=== PATIENT | male | born 1930 | race Caucasian/White ===

== ENCOUNTER 2017-02-09 17:38 | Emergency (ER) | payer MEDICARE, BC ==
[2017-02-09 17:46] VITALS: BP 146/80
[2017-02-09] MEDS ORDERED: DOXYcycline CAP(*) 100 MG PO ONE (19:14)
--- NOTE | 2017-02-19 08:21 | UC ---
Skin Complaint HPI - HPI Summary HPI Summary: has three small remaining ticks on his right arm that he is an able to remove - his was able to remove one prior to arrival. Believes he was exposed in the past 2-3 days- - History of Current Complaint Chief Complaint: UCScassiezunguyen Time Seen by Provider: 02/09/17 18:56 Stated Complaint: TICK BITE Hx Obtained From: Patient Onset/Duration: Sudden Onset Skin Exposure Onset/Duration: Days Ago Timing: Constant Onset Severity: Mild Current Severity: None Pain Intensity: 0 Pain Scale Used: PAINAD Location: Diffuse - right fore arm Aggravating: Nothing Alleviating: Nothing Associated Signs & Symptoms: Positive: Negative Related History: Insect Bite/Sting - Allergy/Home Medications Allergies/Adverse Reactions: Allergies Allergy/AdvReac Type Severity Reaction Status Date / Time No Known Allergies Allergy Verified 02/09/17 17:46 Review of Systems Constitutional: Negative Skin: Other - 3 small ticks on right arm patient needs assistance removing Eyes: Negative ENT: Negative Respiratory: Negative Cardiovascular: Negative Gastrointestinal: Negative Genitourinary: Negative Motor: Negative Neurovascular: Negative Musculoskeletal: Negative Neurological: Negative Psychological: Negative All Other Systems Reviewed And Are Negative: Yes PMH/Surg Hx/FS Hx/Imm Hx Previously Healthy: No Endocrine History: Dyslipidemia Cardiovascular History: Hypertension, Atrial Fibrillation - Surgical History Surgical History: Yes Surgery Procedure, Year, and Place: Pacemaker - Family History Known Family History: Positive: None - Social History Occupation: Retired Lives: With Family Alcohol Use: Rare Substance Use Type: None Smoking Status (MU): Never Smoked Tobacco - Immunization History Most Recent Influenza Vaccination: season Most Recent Tetanus Shot: 6 months ago Physical Exam Triage Information Reviewed: Yes Appearance: Well-Appearing, No Pain Distress, Well-Nourished Vital Signs: Initial Vital Signs Temp 97.7 F 02/09/17 17:41 Pulse 80 02/09/17 17:41 Resp 18 02/09/17 17:41 BP 146/80 02/09/17 17:41 Pulse Ox 100 02/09/17 17:41 Vital Signs Reviewed: Yes Eye Exam: Normal Eyes: Positive: Conjunctiva Clear ENT Exam: Normal ENT: Positive: Normal ENT inspection, Hearing grossly normal. Negative: Nasal congestion, Nasal drainage, Trismus, Muffled/hoarse voice Dental Exam: Normal Neck exam: Normal Neck: Positive: Supple, Nontender, No Lymphadenopathy Respiratory Exam: Normal Respiratory: Positive: Chest non-tender, No respiratory distress, No accessory muscle use Cardiovascular Exam: Normal Cardiovascular: Positive: RRR, Pulses Normal, Brisk Capillary Refill Musculoskeletal Exam: Normal Musculoskeletal: Positive: Strength Intact, ROM Intact, No Edema Neurological Exam: Normal Neurological: Positive: Alert, Muscle Tone Normal Psychological Exam: Normal Psychological: Positive: Normal Response To Family Skin: Positive: Other - Ticks as described Course/Dx - Course Course Of Treatment: Doxycycline 200 mg time one now, observe for s/s of Lyme disease follow with pcp - Differential Diagnoses - Skin Complaint Differential Diagnoses: Cellulitis, Heat Exhaustion, Local Allergic Reaction, Tick Born Illness - Diagnoses Provider Diagnoses: Tick expose with Lyme PEP, Hypertension in poor control Discharge - Discharge Plan Condition: Stable Disposition: HOME Patient Education Materials: Doxycycline (By mouth), Tick Bite (ED) Referrals: Arik Tierney MD [Primary Care Provider] - If Needed
== END 2017-02-09 19:30 | disposition home or self-care (01) ==
LOC: UCEAST 17:38
DX: S50.861A Insect bite (nonvenomous) of right forearm, initial encounter (principal); W57.XXXA Bitten or stung by nonvenomous insect and other nonvenomous arthropods, initial encounter; Y93.9 Activity, unspecified; Y92.9 Unspecified place or not applicable; I10 Essential (primary) hypertension; E78.5 Hyperlipidemia, unspecified; I48.91 Unspecified atrial fibrillation; Z95.0 Presence of cardiac pacemaker
CPT/HCPCS: 99212; A9270-GY; G0463

== ENCOUNTER 2018-06-01 09:00 | Inpatient (IN) | payer MEDICARE, BC ==
[2018-06-01 15:34] LABS: ABS Basophils 0 10^3/ul (0-0.2); ABS Eosinophils 0 10^3/ul (0-0.6); ABS Lymphocytes 0.8 10^3/ul (1.0-4.8); ABS Neutrophils 5.5 10^3/ul (1.5-7.7); ABS Nucleated RBC 0 10^3/ul; Eosinophil % 0.1 %; Hematocrit 43 % (42-52); Hemoglobin 14.5 g/dl (14.0-18.0); Lymphocyte % 10.4 %; Mean Corpuscular HGB Conc 33 g/dl (31-36); Mean Corpuscular Hemoglobin 30 pg (27-31); Mean Corpuscular Volume 90 fL (80-94); Mean Platelet Volume 9.2 fL (7.4-10.4); Nucleated Red Blood Cells % 0.1; Platelet Count 176 10^3/ul (150-450); Red Blood Count 4.81 10^6/ul (4.00-5.40); Red Cell Distribution Width 14 % (10.5-15); White Blood Count 7.3 10^3/ul (3.5-10.8)
[2018-06-01 15:53] LABS: EGFR Non-African American 57.8 (>60)
[2018-06-01] MEDS: cefTRIAXone(*) 2 GM in NS 0.9% 100 ML* 100 ML IVPB SCH (16:18)
[2018-06-01] MEDS ORDERED: Levalbuterol 0.63MG/3ML NEB* UNIT OF USE INH PRN (16:57)
[2018-06-01] MEDS: Azithromycin IV(*) 500 MG in NS 0.9% 250 ML* 250 ML IVPB SCH (17:27)
--- NOTE | 2018-06-01 18:55 | HP ---
ADMITTING HISTORY AND PHYSICAL: DATE OF ADMISSION: 06/01/18 Direct admission from medical office. PRESENTING COMPLAINT: Cough, fever, tachycardia, likely pneumonia or pneumonitis with possible sepsis. HISTORY OF PRESENT ILLNESS: Juma Johnston is an 88-year-old white male. He and his returned from a [place] cruise from [place] to [facility] on ; two days later he developed a cough which was productive, yellow-green thick sputum. The cough has worsened and he developed a fever 2 days ago. He has not noticed particular shortness of breath, but his has noticed that he has been struggling for breath. He has had a hoarse voice. He is coughing as he speaks. He has 2-pillow orthopnea. He has had no hemoptysis. He has had some sweats and tremors. He denies any chest pain. PREVIOUS MEDICAL HISTORY: He has a history of coronary artery disease with non- ST wave myocardial infarction and cardiac catheterization. On 10/31/11, he had critical stenosis of left circumflex, 20% stenosis of left anterior descending, 50% stenosis of proximal right coronary artery, and 70% to 75% stenosis of the proximal diagonal of the LAD. On 02/17/13, he had a subsequent coronary artery studies, on this occasion he had a totally occluded distal LAD, 60% mid LAD lesion of the second diagonal branch. Second diagonal branch with critical 80% ostial lesion, and 90% to 95% proximal circumflex narrowing, and 85% blockage in the first obtuse marginal branch and a 40% lesion in the proximal right coronary artery. He was transferred to [facility] where he had a pacemaker defibrillator inserted for ischemic cardiomyopathy. He subsequently had management for atrial fibrillation with anticoagulation and amiodarone. He has ongoing ischemic cardiomyopathy. An echocardiogram on 06/29/17, mild concentric left ventricular hypertrophy, [id number] decreased left ventricular systolic function with an ejection fraction of 40% to 45%, mildly dilated LA, trace MR, trace AR. He was last seen in cardiology office on when he was doing well. No changes were made to his medication. OTHER COMORBIDITIES: Hypercholesterolemia, hearing loss, polymyalgia rheumatica ; hypertension, which is usually office based, and iron deficiency anemia PAST SURGICAL HISTORY: He had a partial orchiectomy. CURRENT MEDICATIONS: 1. Aspirin 81 mg a day. 2. Atorvastatin 40 mg a day. 3. Vitamin B Complex 1 tablet a day. 4. Losartan 50 mg a day. 5. Pradaxa 150 mg daily. 6. Metoprolol ER 25 mg daily. ALLERGIES: LISINOPRIL causes cough. FAMILY HISTORY: Noncontributory. SOCIAL HISTORY: Life-long nonsmoker, occasional alcohol. He is a vegan. REVIEW OF SYSTEMS: General: He has fevers and sweats. He is feeling weak, and unwell. His appetite is decreased. Respiratory System: He has productive cough with sputum, which is discolored and no hemoptysis. He is short of breath. No chest pain on breathing. Cardiovascular System: Orthopnea. No paroxysmal nocturnal dyspnea. No ankle swelling. No chest pain or palpitations. Gastrointestinal System: Reduced appetite. No nausea, vomiting, abdominal pain or change in bowel habits. Genitourinary System: No dysuria or frequency. Nervous System: No headache or neck stiffness. No change in his vision. No problems focally with neurological issues. He is weak when he is walking. No skin changes. No musculoskeletal changes. PHYSICAL EXAMINATION GENERAL: He looks acutely unwell. He is centrally and peripherally cyanosed. He has got cold hands and feet. VITAL SIGNS: Temperature 101.3, pulse 126 and irregular, blood pressure 128/ 70. He is 144 pounds, 5 feet 8 inches tall, 21.9 BMI. Oxygen saturation 91%. RESPIRATORY SYSTEM: He has tachypnea, using accessory muscles of respirations. Percussion note was resonant. Breath sounds, he has wide spread coarse crackles and wheezes in both bases. CARDIOVASCULAR SYSTEM: His pulse was irregularly regular, heart sounds was normal, no added sounds or murmurs. No pedal edema. ABDOMEN: No distention. No masses, tenderness, or organomegaly. Bowel sounds are present. NERVOUS SYSTEM: He is alert and oriented. Conjugate eye movements. PERRLA. Fundi were normal. Cranial nerves II through XII intact. Arms and legs, full power, normal tone, and coordination. SKIN: Normal. ASSESSMENT AND PLAN: 1. Pneumonia. The most likely cause of his problems is a bronchopneumonia. Other possibilities include pneumonitis perhaps caused influenza or other virus. He may be developing sepsis. He certainly has tachycardia and high fever. He needs to be admitted to the hospital owing to the likelihood of pneumonia and comorbidities. At the hospital, he will have sputum checked for Gram stain and culture and sensitivity. He will have blood cultures. We will check a chest x-ray. Other labs will include CBC, differential, CRP, CMP, troponin I. We will treat him with IV fluid. 2. Rapid atrial fibrillation. This is driven by his fever and likely from hypovolemia. We will correct both of these. We will also decide whether we should give him some parenteral beta-blockers. 3. Coronary artery disease. We will rule out an acute ischemic episode and more likely, he has some demand ischemia. 4. Hearing loss. This remains a problem. 5. Cardiac pacemaker. He is tachycardic at the moment and this is not relevant. 6. Polymyalgia rheumatica. This is in remission. I discussed the above with the patient and his , Bonny Johnston. He agrees to a period of observation in the hospital to rule out pneumonia and to initiate treatment. [id number]/CPS #: [id number] MTDD
[2018-06-01] MEDS: Atorvastatin* 40 MG TAB PO SCH (20:02)
[2018-06-01] MEDS: CMCS: Dabigatran CAP(NF) 150 MG CAP PO SCH (20:04)
[2018-06-01] MEDS: GuaiFENesin DM* 5 ML UDC PO PRN (20:58)
[2018-06-01] MEDS: Metoprolol Succinate XL TAB* 25 MG PO SCH (23:14)
[2018-06-02] MEDS: GuaiFENesin DM* 5 ML UDC PO PRN ×3 (01:07→20:55)
--- NOTE | 2018-06-02 08:19 | PN ---
Subjective - Subjective Reason for Note: Progress Note History: He is more comfortable this morning and less dyspneic. He has no chest pain or palpitations and his heart rate has come down. He continues to have paroxysmal coughing and is bringing up sputum. He is afebrile and has had no chills/ sweats. 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.810 Patient is full code (Chronic 02/14/15) Z78.9 Polymyalgia rheumatica (Chronic) M35.3 Tremor (Chronic) R25.1 Current Medications: Current Medications Atorvastatin Calcium (Lipitor*) 40 mg PO 2100 [facility] Last Admin: 06/01/18 20:02 Dose: 40 mg Dabigatran (Pradaxa Cap(Nf)) 150 mg PO BID [facility] Last Admin: 06/01/18 20:04 Dose: 150 mg Guaifenesin/Dextromethorphan (Robitussin Dm*) 5 ml PO Q4H PRN PRN Reason: COUGH Last Admin: 06/02/18 01:07 Dose: 5 ml Azithromycin 500 mg/ Sodium (Chloride) 250 mls @ 250 mls/hr IVPB Q24H [facility] Last Admin: 06/01/18 17:27 Dose: 250 mls/hr Ceftriaxone Sodium 2 gm/ (Sodium Chloride) 100 mls @ 200 mls/hr IVPB Q24H [facility] Last Admin: 06/01/18 16:18 Dose: 200 mls/hr Lactated Ringer's (Lactated Ringers 1000 Ml Bag*) 1,000 mls @ 150 mls/hr IV PER RATE [facility] Stop: 06/02/18 15:04 Last Admin: 06/02/18 00:20 Dose: 150 mls/hr Levalbuterol HCl (Xopenex 0.63mg/3ml Neb*) 0.31 mg INH Q6H PRN PRN Reason: SOB/WHEEZING Last Admin: 06/01/18 17:45 Dose: 0.31 mg Metoprolol Succinate (Toprol Xl Tab*) 25 mg PO BEDTIME [place] Last Admin: 06/01/18 23:14 Dose: 25 mg Home Medications: Home Medications Medication Instructions Recorded Confirmed Type Atorvastatin* [Lipitor*] 1 tab PO BEDTIME 02/17/13 06/01/18 History Losartan TAB* [Cozaar TAB*] 2 tab PO DAILY 02/17/13 06/01/18 History Aspirin EC TAB* [Ecotrin EC Low 1 tab PO QAM 08/02/14 06/01/18 History Dose*] Dabigatran CAP(NF) [Pradaxa 1 cap PO BID 02/13/15 06/01/18 History CAP(NF)] Metoprolol Tartrate 1 tab PO QPM 02/25/15 06/01/18 History Allergies: Allergies Allergy/AdvReac Type Severity Reaction Status Date / Time No Known Allergies Allergy Verified 02/09/17 17:46 Objective - Vital Signs Vital Signs: Vital Signs 06/01/18 06/01/18 06/01/18 15:27 16:00 17:47 Temperature 98.4 F Pulse Rate 109 102 Respiratory 22 20 Rate Blood Pressure 142/66 (mmHg) O2 Sat by Pulse 95 95 95 Oximetry 06/01/18 06/02/18 06/02/18 19:40 00:05 00:33 Temperature 99.2 F 99.7 F Pulse Rate 114 106 Respiratory 24 24 Rate Blood Pressure 122/63 143/54 (mmHg) O2 Sat by Pulse 96 96 97 Oximetry 06/02/18 05:04 Temperature 98.3 F Pulse Rate 104 Respiratory 20 Rate Blood Pressure 138/73 (mmHg) O2 Sat by Pulse 97 Oximetry - Intake and Output Intake and Output: Intake & Output 05/30/18 05/31/18 06/01/18 06/02/18 11:59 11:59 11:59 11:59 Intake Total 440 Output Total 300 Balance 140 Weight 144 lb 4.8 oz Intake: IV Fluids 320 Oral 120 Output: Urine 300 Other: Estimated Void Small # Voids 1 ADLs: Meal Record Start: 06/01/18 15: 27 Freq: DAILY@0900,1400,1800 Status: Active Protocol: Created 06/01/18 15:27 System (Rec: 06/01/18 15:27 System [email or web address]) Document 06/01/18 18:00 [id number] (Rec: 06/01/18 21:03 [id number]) Intake and Output Start: 06/01/18 15: 27 Freq: DAILY@0600,1400,2200 Status: Active Protocol: Created 06/01/18 15:27 System (Rec: 06/01/18 15:27 System [email or web address]) Document 06/01/18 22:00 [id number] (Rec: 06/01/18 22:29 [id number] [email or web address]) Document 06/02/18 06:00 [id number] (Rec: 06/02/18 06:34 [id number]) - Physical Exam General Physical Exam Comment: He is warm and well perfused. He is no longer cyanosed. He is not in acute distress General: No Cyanosis, No Anemia, No Jaundice, No Clubbing Lungs and Chest: Yes: Chest Expansion Symetrica, Crackles - bibasilar, Wheezes. No: Chest Expansion Full, Percussion Note Resonant - dull right base, Vessicular Breath Sounds - diminished at bases with bilateral rhonchi, Respiratory Distress, Use of Accessory Muscles Heart Rate and Rhythm: Irregular Additional Cardiovascular: Yes: Normal Heart Sounds. No: Heart Murmur, Pedal Edema Abdominal Exam: Yes: Soft, Bowel Sounds Present. No: Distention, Abdominal Tenderness - Extremities Cranial Nerves II-XII Intact: Yes Limbs: Normal Power, Normal Tone - Neuro Orientation: A/O x3 Results - Results Lab Results: Laboratory Results - last 24 hr 06/01/18 06/01/18 06/01/18 15:25 15:25 17:55 WBC 7.3 RBC 4.81 Hgb 14.5 Hct 43 MCV 90 MCH 30 MCHC 33 RDW 14 Plt Count 176 MPV 9.2 Neut % (Auto) 75.1 Lymph % (Auto) 10.4 [place] % (Auto) 13.9 Eos % (Auto) 0.1 Baso % (Auto) 0.5 Absolute Neuts (auto) 5.5 Absolute Lymphs (auto) 0.8 L Absolute Monos (auto) 1.0 H Absolute Eos (auto) 0 Absolute Basos (auto) 0 Absolute Nucleated RBC 0 Nucleated RBC % 0.1 Sodium 134 L Potassium 3.8 Chloride 98 L Carbon Dioxide 29 Anion Gap 7 BUN 35 H Creatinine 1.19 H Est GFR ( Amer) 70.0 Est GFR (Non-Af Amer) 57.8 BUN/Creatinine Ratio 29.4 H Glucose 146 H Calcium 9.4 Total Bilirubin 1.40 H AST 53 H ALT 28 Alkaline Phosphatase 55 C-Reactive Protein 291.82 H Total Protein 7.5 Albumin 3.8 Globulin 3.7 Albumin/Globulin Ratio 1.0 Influenza A (Rapid) Negative Influenza B (Rapid) Negative Radiology Results: Patient Name: ADELE RODRIGUEZ Medical Record#: [id number] Ordering Physician: Arik Tierney MD Acct.#: [id number] : 1930 Age: 88 Sex: M Location: [address] [place] [address]/[employer]LE[employer] Exam Date: 06/01/181458 ADM Status: ADM Pearl Order Information: CHEST PA & LAT 2 VWS Accession Number: [id number] CPT: 98273 INDICATION: Pneumonia. COMPARISON: Comparison is made with prior chest x-ray study from February 15, 2015. TECHNIQUE: Dual-energy PA and lateral views of the chest were obtained. FINDINGS: The heart is upper limits of normal in size. There is a dual-chamber transvenous cardiac pacemaker defibrillator present. There is a small infiltrate in the right lower lobe. The left lung appears clear. No pleural effusion is seen. IMPRESSION: SMALL RIGHT LOWER LOBE INFILTRATE. <Electronically signed by Arun Gomez MD in OV> 06/01/181623 Dictated By: Arun Gomez MD Dictated Date/Time: 06/01/181623 Transcribed Date/Time: 06/01/181622 Copy to: CC:Arik Tierney MD; Kyrie Tinsley DO Imaging - [facility] Imaging - [facility] [address] [address] ph ([phone]) ph ([phone]) ph ([phone]) This report is only to be considered final once signed by the Provider(s) as displayed in the "<Electronically Signed by >" field (s). Absence of a signature indicates the report is in a draft status and still needs to be finalized. In the event this document was created by someone other than the signing Provider, the individual initiating the document will be listed in the "Entered by:" or "Dictated by:" morejon. 1 of 1 EKG Report: 06/01/2018 Rate 120 QTc 444 QRS axis -64 Atrial fibrillation: LAFB Assessment - Problem List Assessment: Patient Problems History of atrial fibrillation (Acute) Right lower lobe pneumonia (Acute) Cardiac pacemaker (Chronic) Chronic anticoagulation (Chronic) Coronary artery disease (Chronic) History of myocardial infarction (Chronic) Hypercholesteremia (Chronic) ICD (implantable cardioverter-defibrillator) in place (Chronic) Patient is full code (Chronic 02/14/15) Polymyalgia rheumatica (Chronic) Tremor (Chronic) Plan: Right lower lobe pneumonia (Acute) He has either pneumonitis or pneumonia. The paradox is the high CRP and fever at presentation, but the normal WBC and neut%. He is negative for influenza. He has responded well to rehydration, oxygen therapy and IV antibacterials. He is no longer cyanosed and peripherally shut down as he was in the office. I think he requires further IV antibacterials. This is a community acquired pneumonia. I will continue empiric therapy with ceftriaxone/azithromycin. I will add prednisone. He will have RT/. History of atrial fibrillation (Acute) His rate has come down Cardiac pacemaker (Chronic) ICD (implantable cardioverter-defibrillator) in place (Chronic) ongoing Chronic anticoagulation (Chronic) continue current Rx Coronary artery disease (Chronic) stable History of myocardial infarction (Chronic) Hypercholesteremia (Chronic) continue current Rx Patient is full code (Chronic 02/14/15) Polymyalgia rheumatica (Chronic) Tremor (Chronic) He is more alert and conversational today. He agrees with the management plan.
[2018-06-02] MEDS: CMCS: Dabigatran CAP(NF) 150 MG CAP PO SCH ×2 (08:49→20:35)
[2018-06-02] MEDS: predniSONE TAB* 20 MG PO SCH (10:40)
[2018-06-02] MEDS: cefTRIAXone(*) 2 GM in NS 0.9% 100 ML* 100 ML IVPB SCH (16:19)
[2018-06-02] MEDS: Azithromycin IV(*) 500 MG in NS 0.9% 250 ML* 250 ML IVPB SCH (17:27)
[2018-06-02] MEDS: Atorvastatin* 40 MG TAB PO SCH (20:35)
[2018-06-02] MEDS: Metoprolol Succinate XL TAB* 25 MG PO SCH (20:43)
[2018-06-03 06:42] LABS: ABS Basophils 0 10^3/ul (0-0.2); ABS Eosinophils 0 10^3/ul (0-0.6); ABS Lymphocytes 1.1 10^3/ul (1.0-4.8); ABS Monocytes 0.9 10^3/ul (0-0.8); ABS Neutrophils 7.6 10^3/ul (1.5-7.7); ABS Nucleated RBC 0 10^3/ul; Eosinophil % 0.3 %; Hematocrit 37 % (42-52); Hemoglobin 12.4 g/dl (14.0-18.0); Lymphocyte % 11.6 %; Mean Corpuscular HGB Conc 34 g/dl (31-36); Mean Corpuscular Hemoglobin 30 pg (27-31); Mean Corpuscular Volume 90 fL (80-94); Mean Platelet Volume 9.1 fL (7.4-10.4); Nucleated Red Blood Cells % 0; Platelet Count 157 10^3/ul (150-450); Red Blood Count 4.12 10^6/ul (4.00-5.40); Red Cell Distribution Width 14 % (10.5-15); White Blood Count 9.7 10^3/ul (3.5-10.8)
[2018-06-03] MEDS: predniSONE TAB* 20 MG PO SCH (08:59)
[2018-06-03] MEDS: CMCS: Dabigatran CAP(NF) 150 MG CAP PO SCH ×2 (09:00→21:24)
[2018-06-03] MEDS: GuaiFENesin DM* 5 ML UDC PO PRN (09:01)
--- NOTE | 2018-06-03 10:51 | PN ---
Subjective - Subjective Reason for Note: Progress Note History: He is improving. He continues to have paroxysmal coughing. His hoarse voice is improving. He has no chest pain or dyspnea at rest. He is not febrile and his pulse rate is not elevated. 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.810 Patient is full code (Chronic 02/14/15) Z78.9 Polymyalgia rheumatica (Chronic) M35.3 Tremor (Chronic) R25.1 Current Medications: Current Medications Atorvastatin Calcium (Lipitor*) 40 mg PO 2100 [facility] Last Admin: 06/02/18 20:35 Dose: 40 mg Dabigatran (Pradaxa Cap(Nf)) 150 mg PO BID [facility] Last Admin: 06/03/18 09:00 Dose: 150 mg Guaifenesin/Dextromethorphan (Robitussin Dm*) 5 ml PO Q4H PRN PRN Reason: COUGH Last Admin: 06/03/18 09:01 Dose: 5 ml Azithromycin 500 mg/ Sodium (Chloride) 250 mls @ 250 mls/hr IVPB Q24H [facility] Last Admin: 06/02/18 17:27 Dose: 250 mls/hr Ceftriaxone Sodium 2 gm/ (Sodium Chloride) 100 mls @ 200 mls/hr IVPB Q24H [facility] Last Admin: 06/02/18 16:19 Dose: 200 mls/hr Levalbuterol HCl (Xopenex 0.63mg/3ml Neb*) 0.31 mg INH Q6H PRN PRN Reason: SOB/WHEEZING Last Admin: 06/01/18 17:45 Dose: 0.31 mg Metoprolol Succinate (Toprol Xl Tab*) 25 mg PO BEDTIME [facility] Last Admin: 06/02/18 20:43 Dose: 25 mg Prednisone (Deltasone Tab*) 20 mg PO DAILY [facility] Last Admin: 06/03/18 08:59 Dose: 20 mg Home Medications: Home Medications Medication Instructions Recorded Confirmed Type Atorvastatin* [Lipitor*] 1 tab PO BEDTIME 02/17/13 06/01/18 History Losartan TAB* [Cozaar TAB*] 2 tab PO DAILY 02/17/13 06/01/18 History Aspirin EC TAB* [Ecotrin EC Low 1 tab PO QAM 08/02/14 06/01/18 History Dose*] Dabigatran CAP(NF) [Pradaxa 1 cap PO BID 02/13/15 06/01/18 History CAP(NF)] Metoprolol Tartrate 1 tab PO QPM 02/25/15 06/01/18 History Vitamin B Complex CAP* [B Complex 1 cap PO DAILY 06/02/18 06/02/18 History CAP*] Allergies: Allergies Allergy/AdvReac Type Severity Reaction Status Date / Time No Known Allergies Allergy Verified 02/09/17 17:46 Objective - Vital Signs Vital Signs: Vital Signs 06/02/18 06/02/18 06/02/18 11:18 15:44 19:34 Temperature 97.6 F 98.0 F 97.5 F Pulse Rate 80 86 94 Respiratory 20 16 16 Rate Blood Pressure 111/58 112/62 101/52 (mmHg) O2 Sat by Pulse 99 100 96 Oximetry 06/02/18 06/02/18 06/03/18 20:00 20:39 00:00 Temperature Pulse Rate 91 Respiratory 167 Rate Blood Pressure 105/46 (mmHg) O2 Sat by Pulse 96 Oximetry 06/03/18 06/03/18 06/03/18 00:07 03:36 07:54 Temperature 98.0 F 98.1 F 98.7 F Pulse Rate 77 76 78 Respiratory 20 16 16 Rate Blood Pressure 100/57 100/57 119/76 (mmHg) O2 Sat by Pulse 96 97 97 Oximetry - Intake and Output Intake and Output: Intake & Output 05/31/18 06/01/18 06/02/18 06/03/18 11:59 11:59 11:59 11:59 Intake Total 1847 1410 Output Total 300 500 Balance 1547 910 Weight 144 lb 4.8 oz Intake: IV Fluids 1357 15 ABX - AZITHROMYCIN 15 IVPB 585 ABX - AZITHROMYCIN 525 ABX - CEFTRIAXONE 60 Oral 490 810 Output: Urine 300 500 Other: Estimated Void Small Large # Voids 1 1 ADLs: Meal Record Start: 06/01/18 15: 27 Freq: DAILY@0900,1400,1800 Status: Active Protocol: Created 06/01/18 15:27 System (Rec: 06/01/18 15:27 System TELE-C02) Document 06/01/18 18:00 [id number] (Rec: 06/01/18 21:03 [id number] TELE-C07) Document 06/02/18 09:00 [id number] (Rec: 06/02/18 14:53 [id number] TELE-C01) Document 06/02/18 14:00 [id number] (Rec: 06/02/18 14:54 [id number] TELE-C01) Document 06/02/18 18:00 [id number] (Rec: 06/02/18 20:32 [id number] TELE-C01) Document 06/03/18 09:00 [id number] (Rec: 06/03/18 10:09 [id number] TELE-C01) Intake and Output Start: 06/01/18 15: 27 Freq: DAILY@0600,1400,2200 Status: Active Protocol: Created 06/01/18 15:27 System (Rec: 06/01/18 15:27 System TELE-C02) Document 06/01/18 22:00 [id number] (Rec: 06/01/18 22:29 [id number] TELE-C07) Document 06/02/18 06:00 [id number] (Rec: 06/02/18 06:34 [id number] TELE-C35) Document 06/02/18 14:00 [id number] (Rec: 06/02/18 14:54 [id number] TELE-C01) Document 06/02/18 21:40 [id number] (Rec: 06/02/18 21:41 [id number] TELE-C01) Document 06/02/18 22:35 [id number] (Rec: 06/03/18 01:26 [id number] TELE-C09) Document 06/03/18 04:00 [id number] (Rec: 06/03/18 04:11 [id number] TELE-C09) Document 06/03/18 06:00 [id number] (Rec: 06/03/18 06:46 [id number] TELE-C35) - Physical Exam General: No Cyanosis, No Anemia, No Jaundice, No Clubbing Lungs and Chest: Yes: Chest Expansion Full, Chest Expansion Symetrica, Vessicular Breath Sounds, Crackles, Wheezes. No: Percussion Note Resonant - dull bases, Respiratory Distress, Use of Accessory Muscles Heart Rate and Rhythm: Regular Additional Cardiovascular: Yes: Normal Heart Sounds. No: Heart Murmur, Pedal Edema Abdominal Exam: Yes: Soft. No: Distention Results - Results Lab Results: Laboratory Results - last 24 hr 06/03/18 06/03/18 06:26 06:26 WBC 9.7 RBC 4.12 Hgb 12.4 L Hct 37 L MCV 90 MCH 30 MCHC 34 RDW 14 Plt Count 157 MPV 9.1 Neut % (Auto) 78.9 Lymph % (Auto) 11.6 Ponce % (Auto) 9.1 Eos % (Auto) 0.3 Baso % (Auto) 0.1 Absolute Neuts (auto) 7.6 Absolute Lymphs (auto) 1.1 Absolute Monos (auto) 0.9 H Absolute Eos (auto) 0 Absolute Basos (auto) 0 Absolute Nucleated RBC 0 Nucleated RBC % 0 Sodium 135 Potassium 3.8 Chloride 101 Carbon Dioxide 30 Anion Gap 4 BUN 24 Creatinine 0.87 Est GFR ( Amer) 100.4 Est GFR (Non-Af Amer) 83.0 BUN/Creatinine Ratio 27.6 H Glucose 121 H Calcium 8.7 C-Reactive Protein 227.68 H Assessment - Problem List Assessment: Patient Problems History of atrial fibrillation (Acute) Right lower lobe pneumonia (Acute) Cardiac pacemaker (Chronic) Chronic anticoagulation (Chronic) Coronary artery disease (Chronic) History of myocardial infarction (Chronic) Hypercholesteremia (Chronic) ICD (implantable cardioverter-defibrillator) in place (Chronic) Patient is full code (Chronic 02/14/15) Polymyalgia rheumatica (Chronic) Tremor (Chronic) Plan: Pneumonia: This is likely a primary atypical pneumonia - this was [place] cruise ship. Azithromycin is the best choice of antibacterials for this, but he may have a secondary bacterium overinfection and the ceftriaxone is a good choice for this. Today, he is improving. However, he is not back to baseline and has not walked independently. His CRP is coming down. I will check his CXR today and mobilize him. I am hoping to send him home tomorrow. Rapid atrial fibrillation: His pulse is now slow and regular - I think he has snapped back into sinus rhythm - another sign he is improving Pre-renal azotemia - he is now rehydrated and his renal function is back to baseline. I explained the above to the patient and he agrees with the management plan.
[2018-06-03] MEDS: cefTRIAXone(*) 2 GM in NS 0.9% 100 ML* 100 ML IVPB SCH (15:30)
[2018-06-03] MEDS: Azithromycin IV(*) 500 MG in NS 0.9% 250 ML* 250 ML IVPB SCH (16:30)
[2018-06-03] MEDS: Atorvastatin* 40 MG TAB PO SCH (21:23)
[2018-06-03] MEDS: Metoprolol Succinate XL TAB* 25 MG PO SCH (21:26)
[2018-06-04 06:22] LABS: EGFR Non-African American 87.6 (>60)
[2018-06-04 07:53] VITALS: BP 134/72
[2018-06-04] MEDS: predniSONE TAB* 20 MG PO SCH (09:30)
[2018-06-04] MEDS: CMCS: Dabigatran CAP(NF) 150 MG CAP PO SCH (09:31)
--- NOTE | 2018-06-04 09:59 | PN ---
Subjective - Subjective Reason for Note: Discharge Note History: Discharge summary He continues to cough, but less productive than before. He is feeling well enough to go home. 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.810 Patient is full code (Chronic 02/14/15) Z78.9 Polymyalgia rheumatica (Chronic) M35.3 Tremor (Chronic) R25.1 Current Medications: Current Medications Atorvastatin Calcium (Lipitor*) 40 mg PO 2100 [facility] Last Admin: 06/03/18 21:23 Dose: 40 mg Dabigatran (Pradaxa Cap(Nf)) 150 mg PO BID [facility] Last Admin: 06/04/18 09:31 Dose: 150 mg Guaifenesin/Dextromethorphan (Robitussin Dm*) 5 ml PO Q4H PRN PRN Reason: COUGH Last Admin: 06/03/18 09:01 Dose: 5 ml Azithromycin 500 mg/ Sodium (Chloride) 250 mls @ 250 mls/hr IVPB Q24H [facility] Last Admin: 06/03/18 16:30 Dose: 250 mls/hr Ceftriaxone Sodium 2 gm/ (Sodium Chloride) 100 mls @ 200 mls/hr IVPB Q24H [facility] Last Admin: 06/03/18 15:30 Dose: 200 mls/hr Levalbuterol HCl (Xopenex 0.63mg/3ml Neb*) 0.31 mg INH Q6H PRN PRN Reason: SOB/WHEEZING Last Admin: 06/01/18 17:45 Dose: 0.31 mg Metoprolol Succinate (Toprol Xl Tab*) 25 mg PO BEDTIME [facility] Last Admin: 06/03/18 21:26 Dose: 25 mg Prednisone (Deltasone Tab*) 20 mg PO DAILY [facility] Last Admin: 06/04/18 09:30 Dose: 20 mg Home Medications: Home Medications Medication Instructions Recorded Confirmed Type Atorvastatin* [Lipitor*] 1 tab PO BEDTIME 02/17/13 06/01/18 History Losartan TAB* [Cozaar TAB*] 2 tab PO DAILY 02/17/13 06/01/18 History Aspirin EC TAB* [Ecotrin EC Low 1 tab PO QAM 08/02/14 06/01/18 History Dose*] Dabigatran CAP(NF) [Pradaxa 1 cap PO BID 02/13/15 06/01/18 History CAP(NF)] Metoprolol Tartrate 1 tab PO QPM 02/25/15 06/01/18 History Vitamin B Complex CAP* [B Complex 1 cap PO DAILY 06/02/18 06/02/18 History CAP*] Allergies: Allergies Allergy/AdvReac Type Severity Reaction Status Date / Time No Known Allergies Allergy Verified 02/09/17 17:46 Objective - Vital Signs Vital Signs: Vital Signs 06/03/18 06/03/18 06/03/18 11:30 15:31 19:33 Temperature 96.9 F 97.5 F 97.1 F Pulse Rate 88 93 91 Respiratory 16 16 18 Rate Blood Pressure 130/64 119/76 121/69 (mmHg) O2 Sat by Pulse 100 98 98 Oximetry 06/03/18 06/03/18 06/04/18 20:00 23:40 00:00 Temperature 97.8 F Pulse Rate 81 Respiratory 18 24 Rate Blood Pressure 114/67 (mmHg) O2 Sat by Pulse 95 95 Oximetry 06/04/18 06/04/18 03:15 07:45 Temperature 97.9 F 98.1 F Pulse Rate 86 88 Respiratory 24 16 Rate Blood Pressure 114/59 134/72 (mmHg) O2 Sat by Pulse 95 98 Oximetry - Intake and Output Intake and Output: Intake & Output 06/01/18 06/02/18 06/03/18 06/04/18 11:59 11:59 11:59 11:59 Intake Total 1847 1410 2850 Output Total 300 500 250 Balance 4332 873 6848 Weight 144 lb 4.8 oz Intake: IV Fluids 1357 15 0 ABX - AZITHROMYCIN 15 ABX - CEFTRIAXONE 0 IVPB 585 ABX - AZITHROMYCIN 525 ABX - CEFTRIAXONE 60 Oral 207 459 2124 Output: Urine 300 500 250 Other: Estimated Void Small Large Small # Bowel Movements 2 # Voids 1 1 1 ADLs: Meal Record Start: 06/01/18 15: 27 Freq: DAILY@0900,1400,1800 Status: Active Protocol: Created 06/01/18 15:27 System (Rec: 06/01/18 15:27 System TELE-C02) Document 06/01/18 18:00 [id number] (Rec: 06/01/18 21:03 [id number] TELE-C07) Document 06/02/18 09:00 [id number] (Rec: 06/02/18 14:53 [id number] TELE-C01) Document 06/02/18 14:00 [id number] (Rec: 06/02/18 14:54 [id number] TELE-C01) Document 06/02/18 18:00 [id number] (Rec: 06/02/18 20:32 [id number] TELE-C01) Document 06/03/18 09:00 [id number] (Rec: 06/03/18 10:09 VCQ7404 TELE-C01) Document 06/03/18 14:00 [id number] (Rec: 06/03/18 14:03 PKT1797 TELE-C09) Document 06/03/18 18:00 [id number] (Rec: 06/03/18 21:26 [id number] TELE-C07) Intake and Output Start: 06/01/18 15: 27 Freq: DAILY@0600,1400,2200 Status: Active Protocol: Created 06/01/18 15:27 System (Rec: 06/01/18 15:27 System TELE-C02) Document 06/01/18 22:00 [id number] (Rec: 06/01/18 22:29 [id number] TELE-C07) Document 06/02/18 06:00 [id number] (Rec: 06/02/18 06:34 [id number] TELE-C35) Document 06/02/18 14:00 [id number] (Rec: 06/02/18 14:54 IWB8818 TELE-C01) Document 06/02/18 21:40 GNU0014 (Rec: 06/02/18 21:41 [id number] TELE-C01) Document 06/02/18 22:35 [id number] (Rec: 06/03/18 01:26 [id number] TELE-C09) Document 06/03/18 04:00 [id number] (Rec: 06/03/18 04:11 [id number] TELE-C09) Document 06/03/18 06:00 [id number] (Rec: 06/03/18 06:46 [id number] TELE-C35) Document 06/03/18 14:00 [id number] (Rec: 06/03/18 14:03 [id number] TELE-C09) Document 06/03/18 22:00 [id number] (Rec: 06/03/18 23:14 [id number] TELE-C01) Document 06/04/18 06:00 [id number] (Rec: 06/04/18 06:17 [id number] TELE-C33) - Physical Exam General: No Cyanosis, No Anemia, No Jaundice, No Clubbing Lungs and Chest: Yes: Chest Expansion Full, Chest Expansion Symetrica, Percussion Note Resonant, Vessicular Breath Sounds, Crackles, Wheezes. No: Respiratory Distress, Use of Accessory Muscles Heart Rate and Rhythm: Regular Additional Cardiovascular: Yes: Normal Heart Sounds. No: Heart Murmur, Pedal Edema Abdominal Exam: Yes: Soft. No: Distention Results - Results Lab Results: Laboratory Results - last 24 hr 06/04/18 05:47 Sodium 137 Potassium 3.6 Chloride 102 Carbon Dioxide 29 Anion Gap 6 BUN 21 Creatinine 0.83 Est GFR ( Amer) 106.0 Est GFR (Non-Af Amer) 87.6 BUN/Creatinine Ratio 25.3 H Glucose 111 H Calcium 9.1 C-Reactive Protein 157.78 H Radiology Results: Patient Name: ADELE RODRIGUEZ Medical Record#: [id number] Ordering Physician: Arik Tierney MD Acct.#: [id number] : 1930 Age: 88 Sex: M Location: [address] [place] [address]/TELEMETRY Exam Date: 06/03/18 105 ADM Status: ADM IN Order Information: CHEST PA & LAT 2 VWS Accession Number: [id number] CPT: 86160 HISTORY: pneumonia - follow up COMPARISONS: June 01, 2018 VIEWS: 4: Frontal dual-energy and lateral views of the chest. FINDINGS: CARDIOMEDIASTINAL SILHOUETTE: The aorta is tortuous. The cardiomediastinal silhouette is otherwise unremarkable. BRYN: The bryn are normal. PLEURA: The costophrenic angles are sharp. No pleural abnormalities are noted. LUNG PARENCHYMA: There is hyperinflation with flattening of the diaphragm and expansion of the AP diameter of the chest. There has been improved aeration of the right lower lung. ABDOMEN: The upper abdomen is clear. There is no subphrenic gas. BONES AND SOFT TISSUES: Degenerative changes are noted. OTHER: An AICD pacemaker is noted. 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 <Electronically signed by Javi Dye MD in OV> 06/03/181228 Dictated By: Javi Dye MD Dictated Date/Time: 06/03/181228 Transcribed Date/Time: 06/03/181227 Copy to: CC:Arik Tierney MD; Kyrie Tinsley DO [facility] [place] [address] [place] [address] ph ([phone]) ph ([phone]) ph ([phone]) This report is only to be considered final once signed by the Provider(s) as displayed in the "<Electronically Signed by >" field (s). Absence of a signature indicates the report is in a draft status and still needs to be finalized. In the event this document was created by someone other than the signing Provider, the individual initiating the document will be listed in the "Entered by:" or "Dictated by:" morejon. 1 of 1 Assessment - Problem List Assessment: Patient Problems History of atrial fibrillation (Acute) Right lower lobe pneumonia (Acute) Cardiac pacemaker (Chronic) Chronic anticoagulation (Chronic) Coronary artery disease (Chronic) History of myocardial infarction (Chronic) Hypercholesteremia (Chronic) ICD (implantable cardioverter-defibrillator) in place (Chronic) Patient is full code (Chronic 02/14/15) Polymyalgia rheumatica (Chronic) Tremor (Chronic) Plan: 1. Pneumonia - this is resolving clinically and also by serology (CRP). He has been afebrile for more than 24 hours. I am discharging him on azithromycin. 2. Atrial fibrillation - he is back in SR.
[2018-06-04] MEDS: GuaiFENesin DM* 5 ML UDC PO PRN (10:48)
--- NOTE | 2018-06-04 13:14 | DS ---
DISCHARGE SUMMARY: DATE OF ADMISSION: 06/01/18 DATE OF DISCHARGE: 06/04/18 DISCHARGE DIAGNOSES: 1. Right lower lobe pneumonia. 2. Primary atypical pneumonia. 3. Rapid atrial fibrillation. COMORBIDITIES: 1. Cardiac pacemaker, ICD. 2. Chronic anticoagulation for paroxysmal atrial fibrillation. 3. Coronary artery disease. 4. History of myocardial infarction. 5. Hypercholesterolemia. 6. History of polymyalgia rheumatica. 7. Tremor. HISTORY: Juma Johnston is an 88-year-old white male. His presentation is documented in my admitting history and physical. I admitted him directly from my medical office where he presented. He had been on a [place] cruise from [place] to [facility] and returned on 05/25/18. Two days later he developed a cough alongside his , with yellow thick sputum. The cough worsened. Two days prior to presentation he developed high fever. He then noted some worsening shortness of breath. He had a hoarse voice and developed laryngitis. In the office, he was coughing and had difficulty speaking. He had two- pillow orthopnea. No hemoptysis. Some sweats and tremors. He denied chest pain. PHYSICAL EXAMINATION IN THE OFFICE: Temperature 101.3, pulse 126, irregular; blood pressure 128/70, 144 pounds, 68 inches, BMI 21.9, oxygen saturation on room air of 91%. Respiratory System: Tachypnea. Using accessory muscles of respiration. Percussion note resonant. Breath sounds, wide spread coarse crackles and wheezes at both bases. Cardiovascular System: Pulse was irregularly irregular, rapid. Heart sounds were normal. No added sounds or murmurs. No pedal edema. His abdomen was benign. Nervous System: He was alert and oriented, but was not making rational choices. INITIAL IMPRESSION: Pneumonia, possibly pneumonitis from a virus or primary atypical pneumonia, rapid atrial fibrillation. Given that he looked acutely sick, I was concerned about sepsis and I sent him directly to the [facility]. INITIAL INVESTIGATIONS: At the [facility], chest x-ray showed a right lower lobe infiltrate. LABORATORY DATA: Paradoxically, his white count was not elevated at 7.3 and his neutrophils were 75.1%, his CBC was otherwise normal. Chemistry profile: Sodium 134, potassium 3.8, chloride 98, bicarbonate 29, BUN 35, creatinine 1.19 , glucose 146. AST 53, ALT 28. C-reactive protein 292. Serology: Negative rapid flu test. INITIAL MANAGEMENT: I started him on ceftriaxone and azithromycin for community - acquired pneumonia. I gave him IV fluids for his dehydration and monitored him. He responded well to this. HOSPITAL COURSE: The microbiology was negative for Strep pneumoniae in his urine and negative for Legionella in his urine. Blood cultures were negative. Sputum cultures were negative. My best guess, given that his also was ill with a similar picture with a high CRP and normal white cells, is that they both caught this during the cruise and this could be some form of primary atypical pneumonia, adenovirus or Legionnaires' disease. Certainly azithromycin is the first drug of choice in these situations. I put him on prednisone 20 mg for 2 days to reduce inflammation and he also had some breathing treatments. On the day of discharge, he is still coughing. His laryngitis has cleared up. His pulse rate has come down and he is now in sinus rhythm. He has been able to walk around the beck and is able to do his ADLs. He is bringing up some phlegm, but less than before. He has been afebrile for more than 24 hours. REVIEW OF SYSTEMS: Cardiovascular System: No chest pain or palpitations. Respiratory System: As above. Gastrointestinal System: No anorexia, nausea, vomiting, or change in bowel habits. Genitourinary System: No problems with urination. PHYSICAL EXAMINATION ON THE DAY OF DISCHARGE: Temperature 98.1, pulse 88, respirations 16, oxygen saturation 98% on room air, blood pressure 134/72. He has no cyanosis, anemia, jaundice, clubbing or lymphadenopathy. Cardiovascular System: His pulse is regular, normal character and volume. Venous pressure not elevated. Heart sounds were normal. No added sounds or murmurs. No edema. Respiratory System: His chest expansion was symmetrical. Percussion note resonant. He had improved air entry into his bases, but he still has a few crackles in both bases. He is not using accessory muscles of respiration. Abdominal Examination: No distention, masses, tenderness or organomegaly. Nervous System: Alert and oriented. Back to his normal mentation. INVESTIGATIONS ON THE DAY OF DISCHARGE: Chemistry was normal. His CRP is down to 158. ASSESSMENT AND PLAN: 1. Pneumonia: This is likely to be an atypical organism for which azithromycin is the first line of treatment. I have stopped the prednisone. I have stopped the ceftriaxone. I will give him a prolonged course of azithromycin. 2. Rapid atrial fibrillation: This was driven by dehydration and acute infection and he is now back to normal sinus rhythm. 3. Coronary artery disease: This was not exacerbated. 4. Other comorbidities: He will stay on his usual medications, which include anticoagulants and statins. DISCHARGE MEDICATIONS: 1. Azithromycin 250 mg daily for 5 days. 2. Losartan 100 mg daily. 3. Atorvastatin 40 mg daily. 4. Aspirin 81 mg daily. 5. Dabigatran 1 tablet twice daily. 6. Metoprolol 1 tablet every evening. 7. Vitamin B complex 1 a day. I have instructed the patient to measure his temperature twice daily and to inform me if he should develop a fever and if he should have worsening of his symptoms. He will make an appointment to see me for followup within 3 days. [id number]/[facility] #: [id number] NORMA
== END 2018-06-04 11:08 | disposition home or self-care (01) | DRG 195 ==
LOC: MEDTELE 09:00 → OBSVTOIN 06-02 09:00
PROVIDERS: ADMIT Internal Medicine; ATTEND Internal Medicine
DX: J18.9 Pneumonia, unspecified organism (principal); I48.0 Paroxysmal atrial fibrillation; E86.0 Dehydration; E86.1 Hypovolemia; I25.5 Ischemic cardiomyopathy; I11.9 Hypertensive heart disease without heart failure; I25.10 Atherosclerotic heart disease of native coronary artery without angina pectoris; E78.00 Pure hypercholesterolemia, unspecified; M35.3 Polymyalgia rheumatica; R25.1 Tremor, unspecified; H91.90 Unspecified hearing loss, unspecified ear; D50.9 Iron deficiency anemia, unspecified; I25.2 Old myocardial infarction; Z95.810 Presence of automatic (implantable) cardiac defibrillator; Z79.82 Long term (current) use of aspirin; Z79.01 Long term (current) use of anticoagulants; Z79.899 Other long term (current) drug therapy; Z88.8 Allergy status to other drugs, medicaments and biological substances
CPT/HCPCS: 36415; 71046; 80048; 80053; 85025; 86140; 87040; 87070; 87205; 87899; 93005; 94640; A9270-GY; G0378; J0456; J0696; J7512

== ENCOUNTER 2018-10-24 15:06 | Emergency (ER) | payer MEDICARE, BC ==
--- OUTSIDE RECORDS SUMMARY | 2018-10-24 15:12 | XMS REPORT | Continuity of Care Document ---
:1930 External Reference #:[id number] Author Name Escobar Currie M.D. Address [address] [place] [address] Care Team Providers Name Role Phone Arik Tierney M.D. Primary Care Physician Unavailable Payers Date Identification Numbers Payment Provider Subscriber Policy Number: [id number] Medicare - NGS Juma Johnston PayID: [id number] [address] [place] [address] Policy Number: [id number] [place] Plan Juma Johnston PayID: [id number] [address] [place] [address] Advance Directives Description No Information Available Problems Active Problems Provider Date Atrial fibrillation Onset: Essential hypertension Onset: Hypercholesterolemia Onset: Combined form of senile cataract Kaylee Louise O.D. Onset: 08/05/2015 Vitreous degeneration Kaylee Louise O.D. Onset: 08/05/2015 Myopia Kaylee Louise O.D. Onset: 08/05/2015 Presbyopia Kaylee Louise O.D. Onset: 08/05/2015 Family History Date Family Member(s) Observation Comments Father No Current Problems Mother Macular Degeneration Social History Type Date Description Comments Sex Unknown Marital Status Legal Status: Occupation [employer] Work Status Retired ETOH Use Rarely consumes alcohol Tobacco Use Start: Unknown Patient has never smoked Recreational Drug Use Denies Drug Use Smoking Status Reviewed: 10/12/18 Patient has never smoked Allergies, Adverse Reactions, Alerts Description No Known Drug Allergies Medications Active Medications SIG Qnty Indications Ordering Provider Date Pradaxa Unknown 150mg Capsules Losartan Potassium Unknown 50mg Tablets Metoprolol Tartrate Unknown 25mg Tablets Atorvastatin Calcium take 1 tablet by Unknown 40mg mouth once daily Tablets Aspir-[address] Shioprolol Succinate ER Luis Tellez M.D. 25mg Tablets ER 24HR Vitamin B12 Unknown 500mcg Tablets ER Immunizations Description No Information Available Vital Signs Description No Information Available Results Description No Information Available Procedures Date Code Description Status 09/09/2017 69972 Determination Of Refractive State Completed 08/08/2017 51723 Est Patient Comprehensive Exam Completed 07/28/2016 33268 Est Patient Comprehensive Exam Completed 08/05/2015 24859 Determination Of Refractive State Completed 08/05/2015 20896 New Patient Comprehensive Exam Completed 01/05/2012 55873 New Patient Intermediate Exam Completed Encounters Description No Information Available Plan of Treatment 10/12/2018 - Escobar Currie M.D.H25.813 Combined forms of age-related cataract , bilateralComments:Smoking can increase the risk of developing or worsening any eye related disease, as well as affect your overall health. If you are a smoker, we strongly recommend that you quit.If you are not a smoker, we strongly recommend that you do not start. You have been diagnosed with cataracts. They are limiting your vision, and I am unable to improve you with new glasses. Our next step is to schedule Cataract surgery and all necessary appointments, which Talita will do for you. We recommend that you write down any questions you may have and bring them to your preoperative appointment so that Dr. Currie can answer them for you. If you have any questions or concerns, you can reach Tiffanie Covarrubias at [phone].Follow up:For preop exam before surgery.H43.813 Vitreous degeneration, bilateralComments:You have a Posterior Vitreous Detachment. If you have any changes in your floaters or flashing lights, please contact this office.
[2018-10-24 15:27] VITALS: BP 137/74
--- NOTE | 2018-10-24 15:36 | UC ---
Skin Complaint HPI - HPI Summary HPI Summary: 88 yo male presents with a wound to his right elbow. He tells me that this afternoon his noticed at tick attached to his right elbow and his tried to remove it. She was digging at the site quite a lot and it was bleeding. Now pt has a wound to his right arm from trying to get the tick out. Unsure how long the tick was attached, but say it was probably a few hours. Mild tenderness to the site. - History of Current Complaint Chief Complaint: UCSkin Time Seen by Provider: 10/24/18 15:25 Stated Complaint: TICK BITE Hx Obtained From: Patient Onset/Duration: Sudden Onset Current Severity: None Pain Intensity: 0 - Allergy/Home Medications Allergies/Adverse Reactions: Allergies Allergy/AdvReac Type Severity Reaction Status Date / Time No Known Allergies Allergy Verified 10/24/18 15:27 Home Medications: Home Medications [place]-3 Fatty Acids/Fish Oil [Fish Oil 1,000 mg Softgel] 1 each PO 10/24/18 [ History] PMH/Surg Hx/FS Hx/Imm Hx Endocrine History: Dyslipidemia Cardiovascular History: Hypertension, Pacemaker/ICD - Surgical History Surgical History: Yes Surgery Procedure, Year, and Place: Pacemaker - Family History Known Family History: Positive: None - Social History Lives: With Family Alcohol Use: Rare Substance Use Type: None Smoking Status (MU): Never Smoked Tobacco - Immunization History Most Recent Influenza Vaccination: April 2018 Most Recent Tetanus Shot: 6 months ago Most Recent Pneumonia Vaccination: Fall 2016 Review of Systems All Other Systems Reviewed And Are Negative: Yes Constitutional: Positive: Negative Skin: Positive: Other - wound right elbow Respiratory: Positive: Negative Cardiovascular: Positive: Negative Neurovascular: Positive: Negative Neurological: Positive: Negative Psychological: Positive: Negative Physical Exam - Summary Physical Exam Summary: GENERAL: NAD. WDWN. No pain distress. SKIN: RIGHT ELBOW: 5mm area of superficial skin loss just through the epidermis overlying lateral epicondyle. Mild active bleeding. CHEST: No accessory muscle use. Breathing comfortably and in no distress. CV: Pulses intact. Cap refill <2seconds NEURO: Alert. PSYCH: Age appropriate behavior. Triage Information Reviewed: Yes Vital Signs: Initial Vital Signs Temp 97.3 F 10/24/18 15:23 Pulse 67 10/24/18 15:23 Resp 18 10/24/18 15:23 BP 137/74 10/24/18 15:23 Pulse Ox 97 10/24/18 15:23 Vital Signs Reviewed: Yes Course/Dx - Course Course Of Treatment: Wound cleansed with NS and bandaged with a band-aid. Advised to change the dressing daily. Will place him on anbx for prophylactic infection. - Diagnoses Provider Diagnosis: Wound of right upper extremity Discharge - Sign-Out/Discharge Documenting (check all that apply): Patient Departure All imaging exams completed and their final reports reviewed: No Studies - Discharge Plan Condition: Stable Disposition: HOME Prescriptions: DOXYcycline CAP(*) [DOXYcycline 100MG CAP(*)] 100 mg PO BID #14 cap Patient Education Materials: Tick Bite (ED) Referrals: Arik Tierney MD [Primary Care Provider] - Additional Instructions: If you develop a fever, shortness of breath, chest pain, new or worsening symptoms - please call your PCP or go to the ED immediately. Please change the dressing on your arm daily until well healed (likely 4-5 days) - Billing Disposition and Condition Condition: STABLE Disposition: Home
== END 2018-10-24 15:45 | disposition home or self-care (01) ==
LOC: UCEAST 15:06
DX: S50.361A Insect bite (nonvenomous) of right elbow, initial encounter (principal); W57.XXXA Bitten or stung by nonvenomous insect and other nonvenomous arthropods, initial encounter; Y92.9 Unspecified place or not applicable; E78.5 Hyperlipidemia, unspecified; I10 Essential (primary) hypertension; Z95.810 Presence of automatic (implantable) cardiac defibrillator
CPT/HCPCS: 99212; G0463

== ENCOUNTER 2018-12-06 08:01 | Day surgery (SDC) | payer MEDICARE, BC ==
[~2018-12-06 08:01] MED LIST: Acetaminophen TAB* 325 MG PO PRN; Buffered Lidocaine 1% SYRIN* 1 ML/SYRINGE INTRADERM ONE
[2018-12-06] MEDS ORDERED: acetaZOLAMIDE TAB* 250 MG ONE (08:03)
[2018-12-06] MEDS ORDERED: Phenylephrine OPHTH SOL 2.5%* 2 ML ONE (08:03)
[2018-12-06] MEDS ORDERED: Neomycin/Polymy/Dex OPTH.SUSP* MAXITROL 0.1% 5 ML ONE (08:03)
[2018-12-06] MEDS ORDERED: Proparacaine 0.5% OPHTH.SOL* 15 ML BTL ONE (08:03)
[2018-12-06] MEDS ORDERED: Cyclopentolate 1% OPTH.SOL* 2 ML BTL ONE (08:03)
[2018-12-06] MEDS ORDERED: Lidocaine 2% EPI 1:200000 MPF*10-20 ML VIAL ONE (08:03)
[2018-12-06] MEDS ORDERED: Povidone Iodine 5% OPTH* 30 ML BTL ONE (08:03)
[2018-12-06] MEDS ORDERED: Ketorolac 0.5% OPHTH (NF) 0.5 % 5 ML BTL ONE (08:03)
[2018-12-06] MEDS ORDERED: Midazolam* 1 MG/ML 2 ML VIAL (2 MG) ONE (10:06)
--- NOTE | 2018-12-06 11:10 | OP ---
OPERATIVE NOTE: DATE OF OPERATION: 12/06/18 - [facility] DATE OF : 32 SURGEON: Escobar Currie M.D. PREOPERATIVE DIAGNOSIS: Cataract, right eye. POSTOPERATIVE DIAGNOSIS: Cataract, right eye. OPERATIVE PROCEDURE: Extracapsular cataract extraction with IOL, right eye. PROCEDURE: The patient was brought to the operating room after being given 1/2 % Alcaine with epinephrine drops in the preoperative area. The eye was prepped and draped in the usual sterile fashion. Sterile drape and eyelid speculum were placed. Again, topical 1/2% Alcaine with epinephrine was given. A paracentesis incision was made at the 9 o'clock position with the No.75 blade. Clear cornea incision 2.2 x 2.2-mm was created at the 12 o'clock position starting at the anterior limbus using the 2.2-mm keratome. The anterior chamber was irrigated with 0.4 mL of 1% non-preservative intracameral lidocaine and filled with DisCoVisc. A capsulorrhexis was completed using the cystotome and the Utrata forceps. Hydrodissection was performed with balanced salt solution. The lens nucleus was removed with the Phacoemulsification handpiece without incident. Cortex was removed with the irrigation-aspiration handpiece. The capsular bag was re-inflated using DisCoVisc and an SN6AT3 15.5 implant was inserted with the shooter and oriented to the 3-degree Bedias. All measurements were confirmed with ORA. Horizontal reference garcia were made with the patient in the preoperative area in the seated position. The irrigation- aspiration handpiece was used to remove all residual DisCoVisc. The eye was refilled with balanced salt solution and the wound checked and found to be watertight. Topical Maxitrol drops were given. [id number]/[facility] #: [id number] [facility]
[2018-12-06 11:15] VITALS: BP 115/68
== END 2018-12-06 11:04 | disposition home or self-care (01) ==
LOC: OREAST 08:01
PROVIDERS: ATTEND Specialist
DX: H25.811 Combined forms of age-related cataract, right eye (principal); H43.813 Vitreous degeneration, bilateral; I48.91 Unspecified atrial fibrillation; I10 Essential (primary) hypertension; E78.00 Pure hypercholesterolemia, unspecified; Z79.01 Long term (current) use of anticoagulants; E78.5 Hyperlipidemia, unspecified
CPT/HCPCS: A9270-GY; J2250; V2787

== ENCOUNTER 2018-12-13 06:44 | Day surgery (SDC) | payer MEDICARE, BC ==
[2018-12-13] MEDS ORDERED: Midazolam* 1 MG/ML 2 ML VIAL (2 MG) ONE (07:52)
[2018-12-13] MEDS ORDERED: fentaNYL* 50 MCG/ML 2 ML VIAL (100 MCG VIAL) ONE (07:52)
[2018-12-13 09:01] VITALS: BP 119/63
--- NOTE | 2018-12-13 09:15 | OP ---
OPERATIVE NOTE: DATE OF OPERATION: 12/13/18 DATE OF : 32 SURGEON: Escobar Currie MD. PREOPERATIVE DIAGNOSIS: Cataract, left eye. POSTOPERATIVE DIAGNOSIS: Cataract, left eye. OPERATIVE PROCEDURE: Extracapsular cataract extraction with intraocular lens implant, left eye. PROCEDURE: The patient was brought to the operating room after being given 1/2% Alcaine with epineph rine drops in the preoperative area. The eye was prepped and draped in the usual sterile fashion. S terile drape and eyelid speculum were placed. Again, topical 1/2% Alcaine with epinephrine was given . A paracentesis incision was made at the 3 o'clock position with the No.75 blade. Clear cornea inc ision 2.2 x 2.2 mm was created at the 6 o'clock position starting at the anterior limbus using the 2. 2 mm keratome. The anterior chamber was irrigated with 0.4 mL of 1% non-preservative intracameral li docaine and filled with DisCoVisc. A capsulorrhexis was completed using the cystotome and the Utrata forceps. Hydrodissection was performed with balanced salt solution. The lens nucleus was removed wi th the Phacoemulsification handpiece without incident. Cortex was removed with the irrigation-aspira tion handpiece. The capsular bag was re-inflated using DisCoVisc and an [id number] 15 implant was insert ed with the shooter oriented to the 169-degree meridian. Horizontal reference garcia made with the pa tient seated in the preoperative area. All measurements were confirmed with ORA. The irrigation- asp iration handpiece was used to remove all residual DisCoVisc. The eye was refilled with balanced salt solution and the wound checked and found to be watertight. Topical Maxitrol drops were given. [id number]/[facility] #: [id number]
[2018-12-13] MEDS ORDERED: acetaZOLAMIDE TAB* 250 MG ONE (11:14)
[2018-12-13] MEDS ORDERED: Lidocaine 1%** 5 ML VIAL ONE (11:14)
[2018-12-13] MEDS ORDERED: Proparacaine 0.5% OPHTH.SOL* 15 ML BTL ONE (11:14)
[2018-12-13] MEDS ORDERED: Cyclopentolate 1% OPTH.SOL* 2 ML BTL ONE (11:14)
[2018-12-13] MEDS ORDERED: Neomycin/Polymy/Dex OPTH.SUSP* MAXITROL 0.1% 5 ML ONE (11:14)
[2018-12-13] MEDS ORDERED: Lidocaine 2% EPI 1:200000 MPF*10-20 ML VIAL ONE (11:14)
[2018-12-13] MEDS ORDERED: Ketorolac 0.5% OPHTH (NF) 0.5 % 5 ML BTL ONE (11:14)
[2018-12-13] MEDS ORDERED: Povidone Iodine 5% OPTH* 30 ML BTL ONE (11:14)
[2018-12-13] MEDS ORDERED: Phenylephrine OPHTH SOL 2.5%* 2 ML ONE (11:14)
== END 2018-12-13 09:20 | disposition home or self-care (01) ==
LOC: OREAST 06:44
PROVIDERS: ATTEND Specialist
DX: H25.812 Combined forms of age-related cataract, left eye (principal); I48.91 Unspecified atrial fibrillation; Z79.01 Long term (current) use of anticoagulants; I10 Essential (primary) hypertension; E78.00 Pure hypercholesterolemia, unspecified
CPT/HCPCS: A9270-GY; J2250; J3010; V2787

== ENCOUNTER → 2019-05-15 | Day surgery (SDC) | payer MEDICARE, BC ==
[~2019-05-15] MED LIST changes: -Buffered Lidocaine 1% SYRIN* 1 ML/SYRINGE INTRADERM ONE; +Diazepam TAB(*) 5 MG ONE; +Lidocaine 1% INJ* 10 MG/ML 30 ML SDV ONE; +Midazolam* 1 MG/ML 5 ML VIAL (5 MG) ONE; +ceFAZolin 1 GM/10 ML flush(*) SYRINGE for pocket flush (cardiology) FLUSH ONE; +ceFAZolin 2 GM in NS 100 ml - ONCE (Pharmacy Admix) IVPB ONE; +ceFAZolin VIAL 1 GM in NS *SYRINGE * * 10 ML ONE; +fentaNYL* 50 MCG/ML 2 ML VIAL (100 MCG VIAL) ONE
[2019-05-15 10:45] VITALS: BP 134/73
--- NOTE | 2019-05-15 14:50 | OP ---
CC: Dr. Kyrie Tinsley * DATE OF OPERATION: 05/15/19 - [facility] CATH DATE OF : 32 SURGEON: Chi Mccarthy MD ANESTHESIA: Local anesthesia with conscious sedation. PRE-OP DIAGNOSES: 1. Ischemic cardiomyopathy. 2. Implantable cardioverter-defibrillator at elective replacement indicator. POST-OP DIAGNOSES: 1. Ischemic cardiomyopathy. 2. Implantable cardioverter-defibrillator at elective replacement indicator. OPERATIVE PROCEDURE: Dual-chamber ICD generator change. ESTIMATED BLOOD LOSS: Nil. COMPLICATIONS: None. INDICATIONS: The patient is an 89-year-old gentleman with a history of ischemic cardiomyopathy, history of ICD implantation in 2012. The patient has been followed by our office. The patient's ICD reached elective replacement indicator. Generator change was recommended. DESCRIPTION OF PROCEDURE: The patient was brought to the procedure room in a fasting state. Informed consent had been obtained prior to the procedure. All labs had been reviewed. The patient was placed supine on the procedure table. His left deltopectoral area was cleaned and draped in the usual fashion. 1% lidocaine was used for local anesthesia. A 4 cm incision was made at the previous incision line and blunt dissection was carried down to the fiber sheath. The fiber sheath was opened and the ICD was removed from the pocket. The ICD was detached from the atrial and ventricular leads and removed from the table. A new generator was attached appropriately to the atrial and ventricular leads. The pocked was flushed with antibiotic-infused normal saline. The generator was placed in the pocket. The surgical incision was closed in 3 layers. The patient tolerated the procedure well with no complications. The explanted device is a Medtronic model V555MMY, serial number [id number]. The new implanted device is a Medtronic model IXPM1U0, serial number [id number]. The new device is MRI compatible. [id number]/[facility] #: [id number] [facility]
== END | disposition home or self-care (01) ==
LOC: CHICATH 06:53
PROVIDERS: ATTEND Specialist
DX: Z45.010 Encounter for checking and testing of cardiac pacemaker pulse generator [battery] (principal); I25.5 Ischemic cardiomyopathy; I25.10 Atherosclerotic heart disease of native coronary artery without angina pectoris; I48.11 Longstanding persistent atrial fibrillation; I25.2 Old myocardial infarction; Z95.810 Presence of automatic (implantable) cardiac defibrillator; Z79.01 Long term (current) use of anticoagulants; Z79.82 Long term (current) use of aspirin; E78.5 Hyperlipidemia, unspecified; I10 Essential (primary) hypertension
CPT/HCPCS: 33263; 88300; 99156; 99157; A9270-GY; C1721; J0690; J2250; J3010

== ENCOUNTER 2019-07-19 19:15 | Emergency (ER) | payer MEDICARE, BC ==
--- OUTSIDE RECORDS SUMMARY | 2019-07-19 19:33 | XMS REPORT | Continuity of Care Document ---
:1930 External Reference #:[id number] Author Name Chi Mccarthy M.D. (transmitted by agent of provider Dorie Felixt) Address [address] [place] [address] Care Team Providers Name Role Phone Arik Tierney MD - Endocrinology, Care Team Information Drug Worker [phone] Diabetes & Metabolism Problems Active Problems Provider Date Chronic ischemic heart disease Luis Tellez M.D., [facility] Onset: 2012 Atrial fibrillation Luis Tellez M.D., [facility] Onset: 05/14/2013 Primary cardiomyopathy Luis Tellez M.D., [facility] Onset: 06/28/2013 Hyperlipidemia Luis Tellez M.D., [facility] Onset: 01/02/2014 Cardiomyopathy, unspecified Ica Pacer Schedule Onset: 04/30/2015 Persistent atrial fibrillation Luis Tellez M.D., [facility] Onset: 2015 Ischemic heart disease Luis Tellez M.D., [facility] Onset: 10/20/2015 Automatic implantable cardiac Luis Tellez M.D., [facility] Onset: 2015 defibrillator in situ Paroxysmal atrial fibrillation Luis Tellez M.D., [facility] Onset: 2016 Persistent atrial fibrillation Luis Tellez M.D., [facility] Onset: 2017 Social History Type Date Description Comments Sex Unknown Tobacco Use Start: Unknown Never Smoked Cigarettes Smoking Status Reviewed: 05/22/19 Never Smoked Cigarettes ETOH Use Denies alcohol use rarely consumes alcohol Tobacco Use Start: Unknown Patient has never smoked Recreational Drug Use Denies Drug Use Exercise Type/Frequency Exercises regularly [employer] bicycling and treadmill 2-3 times per week Exercise Type/Frequency Walks daily Exercise Type/Frequency Does gardening daily Allergies, Adverse Reactions, Alerts Description No Known Drug Allergies Medications Active Medications SIG Qnty Indications Ordering Provider Date Aspirin 81 1 by mouth 60tabs Kyrie Tinsley, 05/03/2019 81mg Tablets every other day DO [facility] DR Jose 1 cap by mouth 180caps Luis Stefek, 150mg Capsules twice a day M.D., [facility], [facility] Atorvastatin Calcium 1 po qd 90tabs Luis Stefek, 40mg M.D., [facility], [facility] Tablets Metoprolol Succinate 1 by mouth 90tabs Kyrie Tinsley, ER every day DO [facility] 25mg Tablets ER 24HR Ferrous Gluconate take one tablet Unknown by mouth once a 324(38Fe) mg Tablets day B-Complex Take one tablet Unknown Tablets once daily History Medications Keflex 3 times a day for 9caps Chi Mccarthy, 05/15/2019 - 250mg Capsules 3 days M.D. 05/21/2019 Immunizations Description No Information Available Vital Signs Date Vital Result Comment 05/22/2019 2:05pm Height 65.75 inches 5'5.75" Weight 140.50 lb w/ out shoes Heart Rate 62 /min L. radial, regular BP Systolic Sitting 132 mmHg LA, reg cuff BP Diastolic Sitting 80 mmHg LA, reg cuff BP Systolic Standing 132 mmHg LA, reg cuff BP Diastolic Standing 80 mmHg LA, reg cuff BMI (Body Mass Index) 22.8 kg/m2 Ejection Fraction 40-45% 06/29/17 05/04/2019 12:56pm Height 65.75 inches 5'5.75" Weight 141.00 lb without shoes Heart Rate 64 /min BP Systolic Sitting 124 mmHg Lue, reg cuff BP Diastolic Sitting 72 mmHg Lue, reg cuff BP Systolic Standing 108 mmHg Lue, reg cuff BP Diastolic Standing 68 mmHg Lue, reg cuff Respiratory Rate 14 /min BMI (Body Mass Index) 22.9 kg/m2 Ejection Fraction 40-45% Echo 06/29/17 Results Test Acquired Date Facility Test Result H/L Range Note Surgical 05/15/2019 [facility] Surgical SEE RESULT [address] [address] [phone] PDFReport SEE IMAGE 1 SEE RESULT BELOW Name: ADELE RODRIGUEZ : [address]: Chi Mccarthy MD Acct: [id number] Unit: [id number] AGE: 89 Location: [facility] Re05/15/19 SEX: M Status: REG SDC SPEC: [id number] LONNIE: [birth year][address]: Chi Mccarthy MD REQ: [id number] RECD: 05/15/19 STATUS: SOUT _ ORDERED: LEVEL 1 FINAL DIAGNOSIS Pacemaker generator, removal: Foreign body (pacemaker generator) (gross diagnosis) PRE-OPERATIVE DIAGNOSIS Atrial fibrillation/cardiomyopathy GROSS DESCRIPTION The specimen is received fresh with no source identified and a requisition labeled, ICD/Pacemaker Generator, and consists of a 6.5 x 5.0 x 1.5 cm silver metallic certified medical coder. The following inscription is identified: [email or web address] [id number] DDE-DDDR [facility]. Per established hospital medical staff protocol, no tissue is submitted. Gross only. Signed by and Reported on: Daphney Galeano MD 05/16/19 1320 END OF REPORT DEPARTMENT OF PATHOLOGY, [address] [place] [address] Cristion Fisher M.D. Director [facility] # [id number] Procedures Date Code Description Status 05/15/2019 34967 Removal Dual Lead Pacing Cardioverter-Defibrillator Completed W/Replacmt 05/03/2019 70723 Icd Check Single,Dual Or Multiple In Person W/DR Schroeder Completed Heart Rhyth 05/03/2019 81691 Icd Check Single,Dual Or Multiple In Person W/DR Schroeder Completed Heart Rhyth 04/09/2019 21503 Interrogation Implant Cardiovasc Monitor System Incl Completed Analysis Int 04/09/2019 96746 Interrogation Implant Cardiovasc Monitor System Incl Completed Analysis Int 04/09/2019 80976 Icd Eval With Inerative Adjustmt Dual Lead System Completed 04/09/2019 16163 Icd Eval With Inerative Adjustmt Dual Lead System Completed 03/12/2019 86511 Icd Check Single,Dual Or Multiple In Person W/DR Schroeder Completed Heart Rhyth 03/12/2019 10741 Icd Check Single,Dual Or Multiple In Person W/DR Schroeder Completed Heart Rhyth 02/05/2019 21472 Interrogation Implant Cardiovasc Monitor System Incl Completed Analysis Int 02/05/2019 32247 Interrogation Implant Cardiovasc Monitor System Incl Completed Analysis Int 02/05/2019 75879 Icd Check Single,Dual Or Multiple In Person W/DR Schroeder Completed Heart Rhyth 02/05/2019 19158 Icd Check Single,Dual Or Multiple In Person W/DR Schroeder Completed Heart Rhyth 01/04/2019 58988 Interrogation Implant Cardiovasc Monitor System Incl Completed Analysis Int 01/04/2019 64322 Interrogation Implant Cardiovasc Monitor System Incl Completed Analysis Int 01/04/2019 81497 Icd Eval With Inerative Adjustmt Dual Lead System Completed 01/04/2019 65929 Icd Eval With Inerative Adjustmt Dual Lead System Completed Medical Devices Description No Information Available Encounters Type Date Location Provider Dx Diagnosis Office Visit 05/04/2019 [facility] Kyrie Collier Z95.810 Presence of 1:00p Of Adrian Tinsley, DO FACC automatic (implantable) cardiac defibrillator I25.2 Old myocardial infarction E78.5 Hyperlipidemia, unspecified I10 Essential (primary) hypertension Z95.0 Presence of cardiac pacemaker I48.11 Longstanding persistent atrial fibrillation I25.5 Ischemic cardiomyopathy Assessments Date Code Description Provider 05/22/2019 I25.5 Ischemic cardiomyopathy Chi Mccarthy M.D. 05/22/2019 Z95.810 Presence of automatic (implantable) Chi Mccarthy M.D. cardiac defibrillator 05/15/2019 I25.5 Ischemic cardiomyopathy Chi Mccarthy M.D. 05/15/2019 Z45.02 Encounter for adjustment and management Chi Mccarthy M.D. of automatic implantable cardiac defibrillator 05/04/2019 Z95.810 Presence of automatic (implantable) Kyrie Tinsley, DO FACC cardiac defibrillator 05/04/2019 I25.2 Old myocardial infarction Kyrie Tinsley, DO FACC 05/04/2019 E78.5 Hyperlipidemia, unspecified Kyrie Tinsley, DO FACC 05/04/2019 I10 Essential (primary) hypertension Kyrie Tinsley, DO FACC 05/04/2019 Z95.0 Presence of cardiac pacemaker Kyrie Tinsley, DO FACC 05/04/2019 I48.11 Longstanding persistent atrial Kyrie Tinsley, DO FACC fibrillation 05/04/2019 I25.5 Ischemic cardiomyopathy Kyrie Tinsley, DO FACC 05/03/2019 Z95.810 Presence of automatic (implantable) Kyrie Tinsley, DO FACC cardiac defibrillator 05/03/2019 Z95.810 Presence of automatic (implantable) Ica Pacer Schedule cardiac defibrillator 05/03/2019 I25.5 Ischemic cardiomyopathy Kyrie Tinsley, DO FACC 05/03/2019 I25.5 Ischemic cardiomyopathy Ica Pacer Schedule 04/09/2019 Z95.810 Presence of automatic (implantable) Kyrie Amira Tinsley, DO FACC cardiac defibrillator 04/09/2019 Z95.810 Presence of automatic (implantable) Ica Pacer Schedule cardiac defibrillator 04/09/2019 I42.9 Cardiomyopathy, unspecified Kyrie Amira Tinsley, DO FACC 04/09/2019 I42.9 Cardiomyopathy, unspecified Ica Pacer Schedule 03/12/2019 I25.5 Ischemic cardiomyopathy Kyrie SRaeann Tinsley, DO FACC 03/12/2019 I25.5 Ischemic cardiomyopathy Ica Pacer Schedule 03/12/2019 Z95.810 Presence of automatic (implantable) Kyrie Tinsley, DO FACC cardiac defibrillator 03/12/2019 Z95.810 Presence of automatic (implantable) Ica Pacer Schedule cardiac defibrillator 02/05/2019 Z95.810 Presence of automatic (implantable) Kyrie Amira Tinsley, DO FACC cardiac defibrillator 02/05/2019 Z95.810 Presence of automatic (implantable) Ica Pacer Schedule cardiac defibrillator 02/05/2019 I25.5 Ischemic cardiomyopathy Kyrie Tinsley, DO FACC 02/05/2019 I25.5 Ischemic cardiomyopathy Ica Pacer Schedule 01/04/2019 Z95.810 Presence of automatic (implantable) Kyrie Tinsley, DO FACC cardiac defibrillator 01/04/2019 Z95.810 Presence of automatic (implantable) Ica Pacer Schedule cardiac defibrillator 01/04/2019 I42.9 Cardiomyopathy, unspecified Kyrie SRaeann Tinsley, DO FACC 01/04/2019 I42.9 Cardiomyopathy, unspecified Ica Pacer Schedule Plan of Treatment 05/22/2019 - Chi Mccarthy M.D.I25.5 Ischemic cardiomyopathyFollow up:with Dr Tinsley in 3-6 hanlibG54.810 Presence of automatic (implantable) cardiac defibrillator Functional Status Description No Information Available Mental Status Description No Information Available Referrals Description No Information Available
[2019-07-19 19:39] LABS: Influenza A Molecular POSITIVE (Negative)
[2019-07-19] MEDS ORDERED: Acetaminophen TAB* 325 MG PO ONE (22:03)
[2019-07-19] MEDS ORDERED: NS 0.9% 1000 ML** 1,000 ML IV ONE (22:03)
--- NOTE | 2019-07-19 22:23 | ED ---
HPI Febrile Illness - HPI Summary HPI Summary: This pt is an 89 Y/O M presenting to [facility] with a CC of a fever that was 101.3 F while at home. He states that he has been having episodes of SOB, chills, and a productive cough since 07/18/2019 at night. He denies any body aches, CP, N/V, and headaches. He has no aggravating or alleviating factors. Has been taking Tylenol for his symptoms. He notes that his has been sick for over 2 weeks with cough. Was seen at her primary's office. Had fever in the beginning of her illness. He states that he has a PMHx of CHF and HTN. He states that he has no SHx of drinking alcohol, smoking, or drug use. He states that he has no pertinent FHx. - History of Current Complaint Chief Complaint: EDFever Time Seen by Provider: 07/19/19 21:39 Hx Obtained From: Patient Onset/Duration: Started Days Ago - 1 Timing: Constant Temperature: 101.3 F Current Severity: None Pain Intensity: 0 Pain Scale Used: 0-10 Numeric Aggravating Factors: Nothing Alleviating Factors: Nothing Associated Signs and Symptoms: Negative - body aches, CP, N/V, and headaches., Chills, Cough - Additional Pertinent History Primary Care Physician: [id number] - Allergy/Home Medications Allergies/Adverse Reactions: Allergies Allergy/AdvReac Type Severity Reaction Status Date / Time No Known Allergies Allergy Verified 12/13/18 07:12 Home Medications: Home Medications Dabigatran CAP(NF) [Pradaxa CAP(NF)] 150 mg PO BID 07/19/19 [History Confirmed 07/19/19] PMH/Surg Hx/FS Hx/Imm Hx Previously Healthy: Yes Endocrine/Hematology History: Denies: Hx Diabetes, Hx Thyroid Disease, Hx Anemia Cardiovascular History: Reports: Hx Coronary Artery Disease, Hx Hypercholesterolemia, Hx Hypertension - ON DAILY MEDS, Hx Myocardial Infarction Denies: Hx Angina, Hx Congestive Heart Failure, Hx Valvular Heart Disease Comment Only: Other Cardiovascular Problems/Disorders - FOLLOWED BY DR RAMIREZ Respiratory History: Denies: Hx Asthma, Hx Chronic Obstructive Pulmonary Disease (COPD) GI History: Denies: Hx Jaundice, Hx Ulcer History: Denies: Hx Dialysis, Hx Renal Disease Sensory History: Reports: Hx Cataracts - BILATERAL, Hx Contacts or Glasses, Hx Hearing Aid Denies: Hx Macular Degeneration Opthamlomology History: Reports: Hx Cataracts - BILATERAL, Hx Contacts or Glasses Denies: Hx Macular Degeneration - Cancer History Hx Chemotherapy: No Hx Radiation Therapy: No - Surgical History Surgical History: Yes Surgery Procedure, Year, and Place: 2012 Pacemaker [place]. 2014 GALLBLADDER [place] Hx Anesthesia Reactions: No - Immunization History Date of Tetanus Vaccine: unknown Immunizations Up to Date: Yes Infectious Disease History: No Infectious Disease History: Denies: Hx Clostridium Difficile, Hx Hepatitis, Hx Human Immunodeficiency Virus (HIV), Hx of Known/Suspected MRSA, Hx Shingles, Hx Tuberculosis, Hx Known/ Suspected VRE, Hx Known/Suspected VRSA, History Other Infectious Disease, Traveled Outside the [place] in Last 30 Days - Family History Known Family History: Negative: Cardiac Disease, Hypertension, Diabetes - Social History Occupation: Retired Lives: With Family Alcohol Use: None Hx Substance Use: No Substance Use Type: Reports: None Hx Tobacco Use: No Smoking Status (MU): Never Smoked Tobacco Have You Smoked in the Last Year: No Review of Systems Positive: Fever - 101.3 F, Chills Negative: Chest Pain Positive: Shortness Of Breath, Cough Negative: Vomiting, Nausea Negative: Myalgia Negative: Headache All Other Systems Reviewed And Are Negative: Yes Physical Exam - Summary Physical Exam Summary: General: Well-developed, thin, elderly male. Mildly ill appearing. No acute distress. HEENT: Normocephalic, Atraumatic. Eyes: Conjuctiva normal, PERRL. Ears: TMs within normal limits. Nares: (-) discharge, (-) erythema. Oropharynx: Clear, mucous membranes dry, (-) exudates. Neck: Soft, FROM, (-) lymphadenopathy, (-) thyromegaly, (-) JVD. Cardiovascular: Normal sinus rhythm, (-) murmur. Lungs: Clear to auscultation bilaterally (-) wheezes, (-) rales, (-) rhonchi. Abdomen: Soft, non-tender, non-distended, (-) organomegaly, normal bowel sounds. Back: (-) CVA tenderness Extremities: No edema. Skin: Warm, dry, (-) rash. Neuro: Alert and oriented x3, no focal deficits. Psychiatric: Mood normal, affect normal. Triage Information Reviewed: Yes Vital Signs On Initial Exam: Initial Vitals Temp Pulse Resp BP Pulse Ox 100.3 F 100 18 174/99 98 07/19/19 19:20 07/19/19 19:20 07/19/19 19:20 07/19/19 19:20 07/19/19 19:20 Vital Signs Reviewed: Yes Procedures - Sedation Patient Received Moderate/Deep Sedation with Procedure: No Diagnostics - Vital Signs Vital Signs Temp Pulse Resp BP Pulse Ox 07/19/19 21:27 100.9 F 78 18 168/104 07/19/19 19:20 100.3 F 100 18 174/99 98 - Laboratory Lab Results: Lab Results 07/19/19 Range/Units 18:24 Influenza A (Rapid) Positive A (Negative) Influenza B (Rapid) Not Reportable Result Diagrams: 07/19/19 22:08 07/19/19 22:07 Lab Statement: Any lab studies that have been ordered have been reviewed, and results considered in the medical decision making process. - Radiology CXR Radiology Interpretation Completed By: ED Physician Summary of Radiographic Findings: Mild atelectasis, R side is greater than the L. No obvious infiltrate. Pending offical review. - EKG 2214 Cardiac Rate: NL - 96 BPM EKG Rhythm: Atrial Flutter Summary of EKG Findings: EKG at 2214 reveals atrial fibrillation with rate of 96 BPM, and an LAFB, no ischemic changes. This EKG was reviewed and interpreted by Dr. Recinos at 2216 07/19/2019. Course/Dx - Course Course Of Treatment: 89-year-old male presents with flulike symptoms. He is positive for fluid. Chest x-ray negative for pneumonia. has been ill with similar symptoms. He shouldn't given IV fluids. Started on Tamiflu and Tessalon Perles. Advised plenty of fluids and rest. Tylenol as needed. Follow -up with PCP. Follow-up sooner for any worsening symptoms. - Diagnoses Provider Diagnoses: Influenza A Discharge ED - Sign-Out/Discharge Documenting (check all that apply): Patient Departure - discharge - Discharge Plan Condition: Stable Disposition: HOME Prescriptions: Benzonatate CAP* [Tessalon 100 MG CAP*] 100 mg PO TID #10 cap Oseltamivir SUSP 75 MG dose* [Tamiflu SUSP 75 MG dose*] 75 mg PO BID #10 oral.syrin Patient Education Materials: Influenza (ED) Referrals: Arik Tierney MD [Primary Care Provider] - 2 Days Additional Instructions: PLEASE FOLLOW UP WITH YOUR PRIMARY CARE PHYSICIAN IN 1-3 DAYS AND RETURN TO THE EMERGENCY DEPARTMENT FOR ANY NEW OR WORSENING SYMPTOMS. TAKE THE PRESCRIBED MEDICATIONS DIRECTED. - Billing Disposition and Condition Condition: STABLE Disposition: Home - Attestation Statements Document Initiated by Scribe: Yes Documenting Scribe: Chema Mendez Provider For Whom Scribe is Documenting (Include Credential): Huong Recinos MD Scribe Attestation: Chema Degroot, scribed for Huong Recinos MD on 07/20/19 at 0324. Scribe Documentation Reviewed: Yes Provider Attestation: The documentation as recorded by the Chema fuller accurately reflects the service I personally performed and the decisions made by , Huong Recinos MD Status of Scribe Document: Viewed
[2019-07-19 22:24] LABS: ABS Lymphocytes 0.5 10^3/ul (1.0-4.8); ABS Monocytes 0.5 10^3/ul (0-0.8); ABS Neutrophils 4.3 10^3/ul (1.5-7.7); Eosinophil % 0.3 %; Hematocrit 40 % (42-52); Hemoglobin 13.6 g/dL (14.0-18.0); Lymphocyte % 9.4 %; Mean Corpuscular HGB Conc 34 g/dL (31-36); Mean Corpuscular Hemoglobin 31 pg (27-31); Mean Corpuscular Volume 90 fL (80-94); Mean Platelet Volume 9.7 fL (7.4-10.4); Platelet Count 120 10^3/uL (150-450); Red Blood Count 4.43 10^6 /uL (4.18-5.48); Red Cell Distribution Width 14 % (10-15); White Blood Count 5.4 10^3/uL (3.5-10.8)
[2019-07-19 22:36] LABS: INR 1.5 (0.82-1.09)
[2019-07-19 22:40] LABS: Albumin 4.3 g/dL (3.2-5.2); Calcium 9.3 mg/dL (8.6-10.3); Potassium 4.1 mmol/L (3.5-5.0); Total Bilirubin 1.1 mg/dL (0.2-1.0)
[2019-07-19 22:44] LABS: Troponin I 0.02 ng/mL (<0.03)
[2019-07-19 22:46] LABS: Albumin/Globulin Ratio 1.4 (1-3); BUN/Creatinine Ratio 17.6 (8-20); EGFR African American 102.9 (>60); EGFR Non-African American 85.1 (>60); Globulin 3.1 g/dL (2-4); Total Protein 7.4 g/dL (6.4-8.9)
[2019-07-19] MEDS ORDERED: Oseltamivir CAP* 75 MG CAP PO ONE (23:05)
[2019-07-20] MEDS ORDERED: Benzonatate CAP* 100 MG PO ONE (00:29)
[2019-07-20 01:22] VITALS: BP 154/93
== END 2019-07-20 01:05 | disposition home or self-care (01) ==
LOC: ED 19:15
DX: J09.X2 Influenza due to identified novel influenza A virus with other respiratory manifestations (principal); I11.0 Hypertensive heart disease with heart failure; I50.9 Heart failure, unspecified; I25.10 Atherosclerotic heart disease of native coronary artery without angina pectoris; E78.00 Pure hypercholesterolemia, unspecified; I25.2 Old myocardial infarction; Z95.0 Presence of cardiac pacemaker
CPT/HCPCS: 36415; 71045; 80053; 83605; 83880; 84484; 85025; 85610; 87040; 93005; 99283; A9270-GY